=== PATIENT | male | born 1995 | race African-American/Black ===

== ENCOUNTER 2017-01-22 06:20 | Emergency (ER) | payer MEDICAID ==
[~2017-01-22] VITALS: Ht 170.2 cm; Wt 72.6 kg
--- NOTE | 2017-01-22 06:20 | NUR ---
BIBA BLS TO ER BED 7
--- NOTE | 2017-01-22 06:21 | NUR ---
Patient being evaluated by physician at bedside.
[2017-01-22 06:30] VITALS: BP 168/110
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
[2017-01-22] MEDS ORDERED: DICYCLOMINE HCL LIQUID 20 MG, ALUMINUM HYD/MAG/SIMETHICONE 30 ML, LIDOCAINE VISCOUS 2% ... PO ONE ×3 (06:50)
[2017-01-22] MEDS ORDERED: LORazepam 1 MG TAB PO ONE (06:50)
[2017-01-22 07:03] LABS: HEMATOCRIT 44.7 % (36-52); HEMOGLOBIN 14.6 g/dL (12.0-18.0); MEAN CORPUSCULAR HEMOGLOBIN 27 pg (27-31); MEAN CORPUSCULAR HGB CONC 33 g/dL (33-37); MEAN CORPUSCULAR VOLUME 82 fL (80-94); PLATELET COUNT (AUTO) 320 K/uL (140-450); RED BLOOD CELL COUNT(AUTO) 5.47 MIL/uL (4.20-6.10); RED CELL DISTRIBUTION WIDTH 12.5 % (11.6-13.7); WHITE BLOOD COUNT (AUTO) 9.2 K/uL (4.8-10.8)
--- NOTE | 2017-01-22 07:04 | NUR ---
Pt report given to VIDYA MEJÍA. Transfer of care at this time. Addendum: 01/22/17 at 4425 by [facility] X RAY AT BEDSIDE.
--- NOTE | 2017-01-22 07:06 | NUR ---
RECEIVED REPORT FROM VIDYA BERNAL.Patient appears to be resting comfortably in bed. Vital Signs within normal limits. Respirations even and unlabored.WILL CONTINUE TO MONITOR. Addendum: 01/22/17 at 0709 by [facility] PT STS THROAT & UPPER MID CHEST PAIN 10/23.
[2017-01-22 07:21] LABS: ALBUMIN 3.8 g/dL (3.4-5.0); ANION GAP 11.7 (8-16); CALCIUM 9.2 mg/dL (8.5-10.1); CARBON DIOXIDE 26.1 mmol/L (21-32); CREATININE 1.1 mg/dL (0.7-1.3); POTASSIUM 3.8 mmol/L (3.5-5.1); TOTAL BILIRUBIN 0.6 mg/dL (0.0-1.0)
[2017-01-22 07:28] LABS: CREATINE KINASE MB 0.9 ng/mL (0-3.6)
[2017-01-22 07:29] LABS: BAND % (MANUAL) 2 % (0-8); EOSINOPHILS % (MANUAL) 1 % (0-4); LYMPHOCYTES % (MANUAL) 20 % (20-46); MONOCYTES % (MANUAL) 4 % (5-12); NEUTROPHILS % (MANUAL) 73 (43-65); PLATELET ESTIMATE ADEQUATE
--- NOTE | 2017-01-22 07:55 | NUR ---
PT STS CHEST PAIN 07/26. Patient appears to be resting comfortably in bed. BP 160/95; MD AWARE. Respirations even and unlabored.WILL CONTINUE TO MONITOR.
--- NOTE | 2017-01-22 08:12 | NUR ---
ER MD ALENA CAICEDO REEVALUATING PT AT BEDSIDE.
[2017-01-22 08:16] VITALS: BP 160/95
--- NOTE | 2017-01-22 08:16 | NUR ---
Note carlos a in ED - 01/22/17 at 0819 by [facility] Patient discharged with BP 160/95; DENIES HEADACHE OR DIZZINESS; MD PHILLIPS. Written and verbal after care instructions given and explained. Patient verbalized understanding. Ambulatory with steady gait. All questions addressed prior to discharge. Advised to follow up with PMD.
== END 2017-01-22 08:16 | disposition home or self-care (01) ==
LOC: MED 06:20
DX: F19.10 Other psychoactive substance abuse, uncomplicated (principal); R03.0 Elevated blood-pressure reading, without diagnosis of hypertension; F12.90 Cannabis use, unspecified, uncomplicated; F17.200 Nicotine dependence, unspecified, uncomplicated
CPT/HCPCS: 36415; 71010; 80053; 82550; 82553; 83690; 84484; 85025; 93005; 99285; Q0092